=== PATIENT | male | born 1955 | race Caucasian/White ===

== ENCOUNTER → 2017-10-22 | Outpatient (CLI) | payer OTHER, MEDICARE ==
[2017-10-22 11:31] LABS: ANION GAP 6 MEQ/L (8-16); BLOOD UREA NITROGEN 12 MG/DL (7-18); CALCIUM LEVEL 8.5 MG/DL (8.8-10.2); CARBON DIOXIDE LEVEL 30 MEQ/L (21-32); CHLORIDE LEVEL 100 MEQ/L (98-107); CREATININE FOR GFR 0.86 MG/DL (0.70-1.30); FREE T4 0.54 NG/DL (0.76-1.46); GLOMERULAR FILTRATION RATE > 60.0 (>49); GLUCOSE, FASTING 157 MG/DL (70-100); POTASSIUM SERUM 3.9 MEQ/L (3.5-5.1); SODIUM LEVEL 136 MEQ/L (136-145)
[2017-10-22 14:49] LABS: LUTEINIZING HORMONE 0.4 mIU/mL (1.5-9.3)
[2017-10-22 15:49] LABS: PROLACTIN 261.2 NG/ML (2.1-17.7)
[2017-10-24 00:08] LABS: HUMAN GROWTH HORMONE 0.1 ng/mL (0.0-10.0); SEX HORMONE BINDING GLOBULIN 80.7 nmol/L (19.3-76.4); SOMATOMEDIN-C INSULIN GROWTH 67 ng/mL (54-194); TESTOSTERONE FREE (DIRECT) 0.3 pg/mL (6.6-18.1); TESTOSTERONE TOTAL FOR T&D < 3.0 ng/dL (264-916)
[2017-10-27 14:13] LABS: ADRENOCORTICOTROPHIC HORMONE 11.7 pg/mL (7.2-63.3)
[2017-10-27 14:13] LABS: FREE T4 BY DIALYSIS DIRECT 0.71 ng/dL (.)
== END ==
LOC: M LAB 09:27
DX: D35.2 Benign neoplasm of pituitary gland (principal)
CPT/HCPCS: 83001

== ENCOUNTER → 2017-11-06 | Outpatient (REF) | payer OTHER ==
[2017-11-06 20:18] LABS: APPEARANCE, URINE MANUAL TURBID (CLEAR); COLOR, URINE MANUAL YELLOW (YELLOW)
[2017-11-06 20:19] LABS: BILIRUBIN, URINE MANUAL NEGATIVE (NEGATIVE); BLOOD URINE MANUAL POSITIVE (NEGATIVE); GLUCOSE, URINE (UA) MANUAL NEGATIVE (NEGATIVE); KETONE, URINE MANUAL NEGATIVE (NEGATIVE); LEUKOCYTE ESTERASE, URINE MAN POSITIVE (NEGATIVE); MICROSCOPIC INDICATED? MAN YES (NO); NITRITE, URINE MANUAL TRACE (NEGATIVE); PROTEIN, URINE MANUAL 3+ mg/dL (NEGATIVE); SPECIFIC GRAVITY,URINE MANUAL 1.014 (1.002-1.035); UROBILINOGEN, URINE MANUAL NORMAL (NORMAL)
[2017-11-06 20:50] LABS: WBC, URINE TNTC /hpf (0-3)
[2017-11-06 20:51] LABS: AMORPHOUS SEDIMENT, URINE SMALL AMOUNT (NEGATIVE); BACTERIA, URINE LARGE AMOUNT; MUCUS, URINE LARGE AMOUNT (NEGATIVE); SQUAMOUS EPITHELIAL CELL URINE NONE SEEN /hpf (SMALL AMT)
[2017-11-06 20:52] LABS: HYALINE CAST, URINE NONE SEEN /lpf (0-1); MICROSCOPIC EXAM PERFORMED
== END ==
LOC: M LAB REF 16:41
DX: R30.0 Dysuria (principal)
CPT/HCPCS: 81015

== ENCOUNTER → 2017-11-13 | Outpatient (CLI) | payer MEDICARE, MEDICAID ==
[2017-11-13 13:20] LABS: PHENOBARBITAL LEVEL 33.5 UG/ML (15.0-40.0)
[2017-11-13 13:20] LABS: PHENYTOIN (DILANTIN) 30.7 UG/ML (10.0-20.0)
[2017-11-17 14:46] LABS: LAMOTRIGINE (LAMICTAL) 5.1 ug/mL (2.0-20.0)
== END ==
LOC: M LAB 11:51
DX: R56.9 Unspecified convulsions (principal)
CPT/HCPCS: 80185

== ENCOUNTER → 2017-11-18 | Outpatient (CLI) | payer MEDICARE, MEDICAID ==
[2017-11-18 10:26] LABS: PHENYTOIN (DILANTIN) 22.3 UG/ML (10.0-20.0)
== END ==
LOC: M LAB 08:59
DX: R56.9 Unspecified convulsions (principal)
CPT/HCPCS: 80185

== ENCOUNTER → 2017-11-20 | Outpatient (CLI) | payer MEDICARE, MEDICAID ==
[2017-11-20 12:16] LABS: PHENYTOIN (DILANTIN) 20.8 UG/ML (10.0-20.0)
== END ==
LOC: M LAB 10:52
DX: R56.9 Unspecified convulsions (principal)
CPT/HCPCS: 80185

== ENCOUNTER → 2017-12-02 | Outpatient (CLI) | payer MEDICARE, MEDICAID ==
[2017-12-02 10:36] LABS: PHENYTOIN (DILANTIN) 19.5 UG/ML (10.0-20.0)
== END ==
LOC: M LAB 09:12
DX: R56.9 Unspecified convulsions (principal); Z51.81 Encounter for therapeutic drug level monitoring; Z79.899 Other long term (current) drug therapy
CPT/HCPCS: 80185